=== PATIENT | male | born 1985 | race Two or more races ===

== ENCOUNTER 2018-11-17 17:49 | Emergency (ER) | payer SELFPAY ==
[~2018-11-17] VITALS: Ht 165.1 cm; Wt 77.1 kg
--- NOTE | 2018-11-17 18:20 | Emergency Room Report ---
History of Present Illness General Chief Complaint: Laceration Source: Patient, Medical Record Present Illness HPI 33-year-old male presents to the emergency department complaining of 8 out of 10 in severity pain and tenderness and laceration to the posterior aspect of his scalp since last night. Patient is currently intoxicated and therefore a poor historian. Family members who are bedside state that they witnessed him fall and hit his head on the corner of a door and was unconscious for several seconds and was very confused afterward and stumbling even more for a few minutes. She was fine and went to work today however the back of his head began bleeding and now he is currently here in the ER and in the time between managed to have some or alcohol intake. Patient is not currently on any blood thinning medications tetanus vaccination is up to date. He reports blurry vision denies vision loss denies midline neck or back pain. Allergies: Coded Allergies: No Known Allergies (Unverified , 11/17/18) Patient History Limited by: other - intoxicated Past Surgical History: none Pertinent Family History: none Reviewed Nursing Documentation: PMH: Agreed; PSxH: Agreed Nursing Documentation-PMH Past Medical History: No Stated History Review of Systems All Other Systems: limited - Pt currently under the influence Physical Exam Vital Signs Date Time Temp Pulse Resp B/P (MAP) Pulse Ox O2 Delivery O2 Flow Rate FiO2 11/17/18 17:57 97.7 95 16 114/72 96 Sp02 EP Interpretation: reviewed, normal General Appearance: no apparent distress, alert, GCS 15, non-toxic Head: normocephalic, other - occipital scalp laceration 1 inch, well approximated and linear. no obvious fb. Eyes: bilateral eye normal inspection, bilateral eye PERRL - dilated bilaterally, bilateral eye EOMI ENT: hearing grossly normal, normal voice Neck: full range of motion, no bony tend Respiratory: lungs clear, normal breath sounds, speaking full sentences Cardiovascular #1: regular rate, rhythm Musculoskeletal: back normal, normal range of motion, non-tender Neurologic: alert, oriented x3, responsive, motor strength/tone normal, sensory intact, other - Patient has slurred speech and obvious signs of alcohol on the breath, patient however does respond with clear concise responses at a normal response rate., grossly normal Psychiatric: judgement/insight normal Skin: normal color, no rash, warm/dry, well hydrated, laceration - occipital scalp laceration 1 inch, well approximated and linear. no obvious fb. Lymphatic: no adenopathy Procedures Laceration/Wound Repair Laceration/Wound Repair : Consent: Verbal Wound Location: head Wound's Depth, Shape: superficial, linear Wound Length (cm): 4 Wound Explored: clean Wound Repaired With: Dermabond Layer Closure?: No Sterile Dressing Applied?: No Splint Applied?: No Sling Applied?: No Patient Tolerated: Well Complications: None Medical Decision Making PA Attestation Dr. sandoval is my supervising Physician whom patient management has been discussed with. Diagnostic Impression: Primary Impression: Scalp laceration Qualified Codes: S01.01XA - Laceration without foreign body of scalp, initial encounter Additional Impression: Contusion of head Qualified Codes: S00.03XA - Contusion of scalp, initial encounter ER Course 33-year-old male presents to the emergency department complaining of 8 out of 10 in severity pain and tenderness and laceration to the posterior aspect of his scalp since last night. Patient is currently intoxicated and therefore a poor historian. Family members who are bedside state that they witnessed him fall and hit his head on the corner of a door and was unconscious for several seconds and was very confused afterward and stumbling even more for a few minutes. She was fine and went to work today however the back of his head began bleeding and now he is currently here in the ER and in the time between managed to have some or alcohol intake. Patient is not currently on any blood thinning medications tetanus vaccination is up to date. He reports blurry vision denies vision loss denies midline neck or back pain. Ddx considered but are not limited to Fracture, dislocation, contusion, concussion Sprain/Strain/Spasm, hematoma Vital signs: are WNL, pt. is afebrile H&PE are most consistent with contusion, no evidence of focal neurological deficit, no loss of consciousness. ORDERS: -CT Head no contrast ED INTERVENTIONS: -Tylenol PO -Dermabond topically applied to scalp laceration. - Pt. and responsible green party verbalize their understanding and agreement with proposed treatment plan. DISCHARGE: At this time pt. is stable for d/c to home. Will provide printed patient care instructions, and any necessary prescriptions. Care plan and follow up instructions have been discussed with the patient prior to discharge. CT/MRI/US Diagnostic Results CT/MRI/US Diagnostic Results : Imaging Test Ordered: CT Head No Contrast Impression " No evidence of acute fracture, hemorrhage, or intracranial process "Per official radiology report- Please see report for specific details. Last Vital Signs Date Time Temp Pulse Resp B/P (MAP) Pulse Ox O2 Delivery O2 Flow Rate FiO2 11/17/18 17:57 97.7 95 16 114/72 96 Disposition: HOME, SELF-CARE Condition: Stable Scripts Acetaminophen* (TYLENOL EXTRA STRENGTH*) 500 Mg Tablet 500 MG ORAL Q6H, #10 TAB 0 Refills Prov: Terese Lal 11/17/18 Patient Instructions: Facial or Scalp Contusion, [id number], Nonsutured Laceration Care Additional Instructions: Take medications as directed. Follow up with a Primary Care Provider in 3-5 days, even if your symptoms have resolved. --Please review list of primary care clinics, if you do not already have a primary care provider Return sooner to ED if new symptoms occur, or current symptoms become worse. - Please note that this Emergency Department Report was dictated using [employer] mining operator technology software, occasionally this can lead to erroneous entry secondary to interpretation by the dictation equipment. Terese Lal Nov 17, 2018 18:20
[2018-11-17 18:21] VITALS: BP 114/72
--- NOTE | 2018-11-17 18:54 | Diagnostic Imaging Report ---
EXAM: CT Head Without Intravenous Contrast CLINICAL HISTORY: PAIN TECHNIQUE: Axial computed tomography images of the head/brain without intravenous contrast. CTDI is 70 mGy and DLP is 1347 mGy-cm. One or more of the following dose reduction techniques were used: automated exposure control, adjustment of the mA and/or kV according to patient size, use of iterative reconstruction technique. COMPARISON: No relevant prior studies available. FINDINGS: Brain: Unremarkable. No hemorrhage. No edema. Ventricles: Unremarkable. No ventriculomegaly. Bones/joints: Unremarkable. No acute fracture. Soft tissues: Unremarkable. Sinuses: Unremarkable as visualized. Mastoid air cells: Unremarkable as visualized. IMPRESSION: No acute intracranial abnormality.
[2018-11-17] MEDS ORDERED: TYLENOL EXTRA500 MG ORAL (19:06)
[2018-11-17 19:26] VITALS: BP 114/72
== END 2018-11-17 19:15 | disposition home or self-care (01) ==
LOC: EMR 18:49
DX: S01.01XA Laceration without foreign body of scalp, initial encounter (principal); S06.891A Other specified intracranial injury with loss of consciousness of 30 minutes or less, initial encounter; R40.2412 Glasgow coma scale score 13-15, at arrival to emergency department; F10.129 Alcohol abuse with intoxication, unspecified; W18.39XA Other fall on same level, initial encounter; W22.09XA Striking against other stationary object, initial encounter; Y93.9 Activity, unspecified; Y92.9 Unspecified place or not applicable; Y99.9 Unspecified external cause status
CPT/HCPCS: 70450; 99284